=== PATIENT | female | born 1935 | race Caucasian/White ===

== ENCOUNTER 2016-06-22 10:00 | Observation (INO) | payer OTHER, MEDICARE ==
[~2016-06-22] VITALS: Ht 152.4 cm; Wt 65.5 kg
[~2016-06-22 10:00] MED LIST: CALCIUM 500 MG1 EACH PO; CYANOCOBALAM1000 MCG PO; IBUPROFEN800 MG PO; LISINOPRIL20 MG PO; METFORMIN HCL500 MG PO; NEXIUM40 MG PO; PREMARIN VAGI42.5 GM VG; RANITIDINE HCL150 MG PO; RITUXAN10 MG/ML IV; VESICARE5 MG PO; VITAMIN E400 UNIT PO
[2016-06-22 10:31] LABS: HEMATOCRIT 39.6 % (36.0-46.0); MCH 30.2 PG (29.0-34.0); MCHC 34.6 G/DL (30.0-36.0); MCV 87.4 FL (83-99); MEAN PLAT.VOLUME 9.9 uM^3 (9.5-12.4); PLATELET COUNT 242 K/uL (156-360); RBC DIS.WIDTH-CV 12.8 % (11.8-14.6); RBC DIS.WIDTH-SD 39.9 % (39-53); RED BLOOD COUNT 4.53 M/uL (3.80-5.20); WHITE BLOOD COUNT 13.4 K/uL (4.1-10.2)
[2016-06-22 10:43] LABS: CHLORIDE 97 mEq/L (99-109); POTASSIUM 4.5 mEq/L (3.7-5.4); SODIUM 135 mEq/L (136-147)
[2016-06-22 10:45] LABS: GLUCOSE 138 mg/dL (70-99)
[2016-06-22 10:47] LABS: ANION GAP 12 MEQ/L (2-14)
[2016-06-22 10:49] LABS: GFR ESTIMATE (CALCULATED) 57 mL/min/
[2016-06-22 10:50] LABS: UREA NITROGEN (BUN) 24 mg/dL (9-23)
[2016-06-22 10:52] LABS: TROP-I INTERPRETATION NEGATIVE; TROPONIN-I 0.02 ng/mL (0.0-0.30)
[2016-06-22] MEDS ORDERED: ZESTORETIC 20-1 EAC1 PO (12:03)
[2016-06-22] MEDS ORDERED: VITAMIN B-12250 MCG PO (12:03)
[2016-06-22] MEDS ORDERED: PROLIA60 MG/1 ML SC (12:07)
[2016-06-22] MEDS ORDERED: VITAMIN D31000 UNI2 PO (12:08)
[2016-06-22] MEDS ORDERED: CENTRUM SILVER1 EAC3 PO (12:08)
[2016-06-22] MEDS ORDERED: PRAVASTATIN SOD40 MG PO (12:09)
[2016-06-22] MEDS ORDERED: ASPIR-LOW81 MG PO (12:10)
[2016-06-22 12:40] LABS: CREATINE KINASE 86 IU/L (1-294); TOTAL CK 86 IU/L (1-294)
[2016-06-22 12:43] VITALS: BP 189/81
[2016-06-22 13:08] LABS: HDL CHOLESTEROL 45 MG/DL (Desirable>=50); LDL CHOLESTEROL 109 mg/dL (Desirable<100); NON-HDL CHOLESTEROL 186 mg/dL (Desirable<160); TOTAL CHOLESTEROL 231 mg/dL (Desirable<200); TRIGLYCERIDES 386 MG/DL (Normal: <150)
[2016-06-22 13:21] VITALS: BP 160/69
[2016-06-22 13:27] VITALS: BP 137/63
[2016-06-22 16:30] LABS: TROP-I INTERPRETATION NEGATIVE; TROPONIN-I 0.02 ng/mL (0.0-0.30)
[2016-06-22 16:56] LABS: Estimated Average Glucose 137 mg/dL (70-123); HEMOGLOBIN A1c (GLYCOHEMOGLOB) 6.4 % HGB (Below 5.7)
[2016-06-22 17:32] LABS: POINT-OF-CARE METER ID UU14162513
[2016-06-22 19:30] VITALS: BP 143/62
[2016-06-22 22:18] LABS: TROP-I INTERPRETATION NEGATIVE; TROPONIN-I 0.01 ng/mL (0.0-0.30)
[2016-06-22 23:24] VITALS: BP 150/63
[2016-06-23 04:36] VITALS: BP 146/78
[2016-06-23 08:03] VITALS: BP 142/61
[2016-06-23 11:51] VITALS: BP 159/69
[2016-06-23 12:34] LABS: POINT-OF-CARE METER ID UU13113700
[2016-06-23] MEDS ORDERED: NEXIUM40 MG PO (13:14)
[2016-06-23] MEDS ORDERED: LOPRESSOR25 MG PO (13:14)
[2016-06-23] MEDS ORDERED: NITROSTAT0.4 MG SL (13:14)
== END 2016-06-23 13:50 | disposition home or self-care (01) ==
LOC: EME 10:00 → EDOF 11:37 → 5WEST 11:37 → EDOF 12:35 → 5WEST 12:36
PROVIDERS: Hospitalist; Internal Medicine
DX: R07.9 Chest pain, unspecified (principal); I44.7 Left bundle-branch block, unspecified; E11.9 Type 2 diabetes mellitus without complications; I10 Essential (primary) hypertension; M06.9 Rheumatoid arthritis, unspecified; E78.5 Hyperlipidemia, unspecified; R68.84 Jaw pain; D72.829 Elevated white blood cell count, unspecified; Z79.899 Other long term (current) drug therapy; Z87.891 Personal history of nicotine dependence; Z79.82 Long term (current) use of aspirin; Z79.84 Long term (current) use of oral hypoglycemic drugs; Z88.2 Allergy status to sulfonamides; Z88.8 Allergy status to other drugs, medicaments and biological substances; Z83.3 Family history of diabetes mellitus
CPT/HCPCS: 71020; 80048; 80061; 82550; 82550 91; 82553; 82948; 83036; 84443; 84484; 85027; 93005; 93306; 99281; 99283; 99285; G0378; J1650; J1815